=== PATIENT | female | born 1960 | race Caucasian/White ===

== ENCOUNTER → 2020-10-05 | Outpatient (CLI) | payer BC | LOC: WCC 08:45 | DX: S91.002A Unspecified open wound, left ankle, initial encounter (principal); I83.009 Varicose veins of unspecified lower extremity with ulcer of unspecified site; M32.9 Systemic lupus erythematosus, unspecified; I73.00 Raynaud's syndrome without gangrene; M54.16 Radiculopathy, lumbar region; D64.9 Anemia, unspecified; Z88.0 Allergy status to penicillin; Z88.1 Allergy status to other antibiotic agents; Z79.899 Other long term (current) drug therapy; X58.XXXA Exposure to other specified factors, initial encounter | CPT/HCPCS: G0463 ==

== ENCOUNTER → 2020-10-12 | Outpatient (CLI) | payer BC | LOC: RAD 11:02 | DX: I83.003 Varicose veins of unspecified lower extremity with ulcer of ankle (principal); L97.329 Non-pressure chronic ulcer of left ankle with unspecified severity; M32.9 Systemic lupus erythematosus, unspecified; I73.00 Raynaud's syndrome without gangrene; M54.16 Radiculopathy, lumbar region | CPT/HCPCS: 73590; 73610 ==

== ENCOUNTER → 2020-10-12 | Outpatient (CLI) | payer BC | LOC: WCC 09:22 | DX: S91.002A Unspecified open wound, left ankle, initial encounter (principal); I83.009 Varicose veins of unspecified lower extremity with ulcer of unspecified site; L97.909 Non-pressure chronic ulcer of unspecified part of unspecified lower leg with unspecified severity; M32.9 Systemic lupus erythematosus, unspecified; I73.00 Raynaud's syndrome without gangrene; M54.16 Radiculopathy, lumbar region; Z88.0 Allergy status to penicillin; Z88.1 Allergy status to other antibiotic agents; Z79.2 Long term (current) use of antibiotics; Z79.899 Other long term (current) drug therapy; W50.1XXA Accidental kick by another person, initial encounter; X58.XXXA Exposure to other specified factors, initial encounter | CPT/HCPCS: 73590; 73610 ==

== ENCOUNTER → 2020-10-19 | Outpatient (CLI) | payer BC | LOC: WCC 09:44 | DX: I83.009 Varicose veins of unspecified lower extremity with ulcer of unspecified site (principal); M32.9 Systemic lupus erythematosus, unspecified; I73.00 Raynaud's syndrome without gangrene; M54.16 Radiculopathy, lumbar region; D64.9 Anemia, unspecified; I73.9 Peripheral vascular disease, unspecified; M19.90 Unspecified osteoarthritis, unspecified site; Z88.0 Allergy status to penicillin ==

== ENCOUNTER → 2020-10-26 | Outpatient (CLI) | payer BC | LOC: WCC 09:51 | DX: I83.223 Varicose veins of left lower extremity with both ulcer of ankle and inflammation (principal); M32.9 Systemic lupus erythematosus, unspecified; I73.00 Raynaud's syndrome without gangrene; M54.16 Radiculopathy, lumbar region | CPT/HCPCS: 87070; 87205 ==

== ENCOUNTER → 2020-11-02 | Outpatient (CLI) | payer BC | LOC: WCC 10:24 | DX: I83.009 Varicose veins of unspecified lower extremity with ulcer of unspecified site (principal); S91.002D Unspecified open wound, left ankle, subsequent encounter; M32.9 Systemic lupus erythematosus, unspecified; I73.00 Raynaud's syndrome without gangrene; M54.16 Radiculopathy, lumbar region; G90.50 Complex regional pain syndrome I, unspecified; Z88.0 Allergy status to penicillin; Z88.1 Allergy status to other antibiotic agents; Z79.2 Long term (current) use of antibiotics; X58.XXXD Exposure to other specified factors, subsequent encounter ==

== ENCOUNTER → 2020-11-08 | Outpatient (CLI) | payer BC | LOC: WCC 08:54 | DX: S91.002D Unspecified open wound, left ankle, subsequent encounter (principal); I83.009 Varicose veins of unspecified lower extremity with ulcer of unspecified site; M32.9 Systemic lupus erythematosus, unspecified; I73.00 Raynaud's syndrome without gangrene; M54.16 Radiculopathy, lumbar region; G90.50 Complex regional pain syndrome I, unspecified; Z88.0 Allergy status to penicillin; Z88.1 Allergy status to other antibiotic agents; Z79.2 Long term (current) use of antibiotics; Z79.899 Other long term (current) drug therapy; X58.XXXD Exposure to other specified factors, subsequent encounter ==

== ENCOUNTER → 2020-11-22 | Outpatient (CLI) | payer BC | LOC: WCC 09:29 | DX: S91.002D Unspecified open wound, left ankle, subsequent encounter (principal); I83.009 Varicose veins of unspecified lower extremity with ulcer of unspecified site; M32.9 Systemic lupus erythematosus, unspecified; I73.00 Raynaud's syndrome without gangrene; M54.16 Radiculopathy, lumbar region; Z88.0 Allergy status to penicillin; Z88.1 Allergy status to other antibiotic agents; Z79.899 Other long term (current) drug therapy; X58.XXXD Exposure to other specified factors, subsequent encounter ==

== ENCOUNTER → 2020-11-29 | Outpatient (CLI) | payer BC | LOC: WCC 09:29 | DX: I83.009 Varicose veins of unspecified lower extremity with ulcer of unspecified site (principal); M79.662 Pain in left lower leg; M32.9 Systemic lupus erythematosus, unspecified; I73.00 Raynaud's syndrome without gangrene; M54.16 Radiculopathy, lumbar region; G90.50 Complex regional pain syndrome I, unspecified | CPT/HCPCS: 97597 ==

== ENCOUNTER → 2020-12-06 | Outpatient (CLI) | payer BC | LOC: WCC 09:28 | DX: I83.023 Varicose veins of left lower extremity with ulcer of ankle (principal); L97.329 Non-pressure chronic ulcer of left ankle with unspecified severity; M79.605 Pain in left leg; M32.9 Systemic lupus erythematosus, unspecified; I73.00 Raynaud's syndrome without gangrene; M54.16 Radiculopathy, lumbar region; G90.50 Complex regional pain syndrome I, unspecified | CPT/HCPCS: G0463 ==